=== PATIENT | female | born 1980 | race Hispanic/Latino ===

== ENCOUNTER 2016-07-11 13:31 | Inpatient (IN) | payer MEDICAID ==
[~2016-07-11] VITALS: Ht 157.5 cm; Wt 72.6 kg
[~2016-07-11 13:31] MED LIST: Labetalol 5 mg/mL 20 mL Inj ONE; NOMED; Ondansetron 2 mg/mL 2 mL Inj ONE; Oxytocin 10 Unit/mL Inj ONE; Succinylcholine Chloride 20 mg/mL 5 mL Inj ONE; hydrALAZINE 20 mg/mL Inj ONE
--- NOTE | 2016-07-11 15:44 | DRSVH ---
PROCEDURE: US OB 1 OR MORE FETUS LIMITED INDICATIONS: CONFIRM VERTEX OUTSIDE/PRIOR DATING DATA: Last menstrual period (LMP): 10/29/2015. LMP-based estimated date of delivery (KHOA): 08/05/2016. First dating scan (date and location): 01/15/2016. Estimated date of delivery (KHOA) from first dating scan: 07/24/2016. TECHNIQUE: Real-time scanning was performed of the fetus, with image documentation. Endovaginal scanning: Not required COMPARISON: None. FINDINGS: A single living intrauterine gestation is present. Presentation: Confirm Vertex lie. Placenta: Placental position is anterior, without previa. Amniotic fluid index: 7.2 cm, normal range is 5-24 cm. heart rate: 149 beats per minute. Maternal cervical canal: Not well-seen Estimated gestational age from initial scan: 38 weeks one day. IMPRESSION: 1. Pre-induction lie is confirmed as Vertex. Dictated by: Evan Santiago M.D. on 07/11/2016 at 15:42 Approved by: Evan Santiago M.D. on 07/11/2016 at 15:42
[2016-07-11] MEDS ORDERED: Lactated Ringer's 1,000 ML IV SCH ×2 (16:31→22:28)
[2016-07-11 16:33] LABS: Mean Corpuscular Hemoglobin 31.4 pg (27.0-35.0); Mean Corpuscular Volume 92.6 fL (81-100)
[2016-07-11] MEDS ORDERED: Labetalol 5 mg/mL 4 mL Inj ONE (21:22)
[2016-07-11] MEDS ORDERED: Labetalol 5 mg/mL 4 mL Inj IV PRN (22:20)
[2016-07-11] MEDS ORDERED: Lactated Ringer's 500 ML IV ONE (22:28)
[2016-07-11] MEDS ORDERED: EPHEDrine Sulfate 50 mg/mL Inj IVPUSH PRN (22:30)
[2016-07-11] MEDS ORDERED: fentaNYL 2 mCg/mL-Bupiv 0.125% 100 ML EPIDURAL SCH (22:30)
[2016-07-11] MEDS ORDERED: Ondansetron 2 mg/mL 2 mL Inj IVPUSH PRN ×2 (22:30→22:35)
[2016-07-11] MEDS ORDERED: Atropine 1 mg/10 mL (Code) Syringe IVPUSH PRN (22:30)
--- NOTE | 2016-07-11 22:32 | PCM.HPANE ---
Patient Data Date of Service: Jul 11, 2016 Surgeon Admitting Provider:Rusty Colorado MD Attending Provider:Rusty Colorado MD Primary Care Physician:Sabino Wilder MD Other Provider:Juan Dinh Anesthesia Reason for Visit Induction INDUCTION Ht/WT & BMI Body Mass Index Allergies Coded Allergies: No Known Allergies (Unverified Allergy, Unknown, 07/11/16) Diabetes History Hx Diabetes?: No MRSA MRSA: No Medications Hypertension Medication: Yes Home Meds Incl Beta Fanny: No Reported Medications No Historical Medication Ea 07/07/13 History History of ENT Problems?: No Cardiovascular History: Positive for:: Hypertension Hx of Respiratory Problem?: No Hx Neurologic Problems?: No Gastrointestinal History: Positive for:: Gastroesphageal Reflux Hx of Problems?: No Female Hx: Positive for:: Currently Smoking Status: Never Smoker Stop/Bang Risk Assessment Category Category 1A: Patient has history of documented sleep apnea, and HAS NOT received any narcotic, sedative or anesthesia administration during this stay. Category 1B: Patient has history of documented sleep apnea, and HAS received any narcotic , sedative or anesthesia administration during this stay Category 2: Patient has SUSPECTED Obstructive Sleep Apnea, and HAS received any narcotic , sedative or anesthesia administration during this stay. Category 3: Patient has SUSPECTED Obstructive Sleep Apnea and HAS NOT received narcotic, sedative or anesthesia administration during this stay. Category 4: Outpatient in Procedural Areas with known sleep apnea or who screen positive for High Risk via the STOP/BANG questionnaire. Exam Exam General Appearance: Oriented X3 HEENT/AIRWAY: MP 2 Lungs: Clear to Auscultation Heart: Exam Unremarkable Meds/Labs/Diagnostics Admission Meds Current Medications Lactated Ringer's (Lr) 1,000 ml @ 125 mls/hr Q8H IV Last administered on 21:31; Start 07/11/16 at 16:31 Dinoprostone (Cervidil Vaginal Insert) 10 mg ONCE ONCE VAGINAL Last administered on 07/11/16 17:49; Start 07/11/16 at 16:35; Stop 07/11/16 at 16:37; Status DC Labetalol HCl (Trandate Inj) 20 mg STK-MED ONCE .ROUTE Last administered on 07/11 21:31; Start 07/11/16 at 21:22; Stop 07/11/16 at 21:23; Status DC Labs Test 07/11/16 14:00 07/11/16 15:00 07/11/16 16:10 Hold Purple Top Tube Received (Received) Urine Random Creatinine 74mg/dL (16-392) Urine Random Total Protein 16mg/dL (0-15) Urine Protein/Creatinine Ratio 0.22 Hold Urine Received (Received) White Blood Count 7.9th/mm3 (3.8-10.1) Red Blood Count 4.59mil/mm3 (3.90-5.20) Hemoglobin 14.4g/dL (12.0-15.6) Hematocrit 42.5% (35.0-46.0) Mean Corpuscular Volume 92.6fL (81-100) Mean Corpuscular Hemoglobin 31.4pg (27.0-35.0) Mean Corpuscular Hemoglobin Concent 33.9% (32.0-37.0) Red Cell Distribution Width 14.3% (12.3-15.4) Platelet Count 161bil/L (150-400) Hematology Comments Blood Urea Nitrogen 6mg/dL (6-20) Creatinine 0.43mg/dL (0.57-1.00) Uric Acid 5.0mg/dL (2.6-7.2) Aspartate Amino Transf (AST/SGOT) 30U/L (0-50) Alanine Aminotransferase (ALT/SGPT) 33U/L (0-32) Plan Impression Patient chart reviewed, patient interviewed and anesthestic plan with risks, benefits, and alternatives discussed, and informed consent obtained. ASA Physical Status: ASA3 Severe Disease Anesthetic Plan: Epidural Other with gestational htn vs pre-eclampsia. PLTs >100. Consented via straight edger. Nabil Perez MD Jul 11, 2016 22:31
[2016-07-11] MEDS ORDERED: Oxytocin 30 Units/500 mL LR 30 UNITS in IV Premix 1 EACH IV PRN (22:35)
[2016-07-11] MEDS ORDERED: fentaNYL-PF 50 mCg/mL 2 mL Inj IVPUSH PRN (22:35)
[2016-07-11] MEDS ORDERED: Hemorrhage Kit, Post Partum XX ONE (22:35)
[2016-07-11] MEDS ORDERED: Methylergonovine 0.2 mg/mL Inj IM PRN (22:35)
[2016-07-11] MEDS ORDERED: Oxytocin 10 Unit/mL Inj IM PRN (22:35)
[2016-07-11] MEDS ORDERED: Carboprost 250 mCg/mL Inj IM PRN (22:35)
[2016-07-11] MEDS ORDERED: Sodium Chloride LOK Flush 10 mL Syringe IVFLUSH PRN (22:35)
[2016-07-12] MEDS ORDERED: Sodium Chloride LOK Flush 10 mL Syringe IVFLUSH PRN (07:35)
[2016-07-12] MEDS ORDERED: LANOlin HPA 7 Gm Ointment TOPICAL PRN (07:35)
[2016-07-12] MEDS ORDERED: Methylergonovine 0.2 mg/mL Inj IM PRN (07:35)
[2016-07-12] MEDS ORDERED: Oxytocin 10 Unit/mL Inj IM PRN (07:35)
[2016-07-12] MEDS ORDERED: Carboprost 250 mCg/mL Inj IM PRN (07:35)
[2016-07-12] MEDS ORDERED: Oxytocin 30 Units/500 mL LR 30 UNITS in IV Premix 1 EACH IV PRN (07:35)
[2016-07-12] MEDS ORDERED: Measles-Mumps-Rubella Vaccine 0.5 mL Inj SUBQ ONE (07:35)
[2016-07-12] MEDS ORDERED: diphenhydrAMINE 50 mg Capsule PO PRN (07:35)
[2016-07-12] MEDS ORDERED: Hemorrhage Kit, Post Partum XX ONE (07:35)
[2016-07-12] MEDS ORDERED: Calcium GLUCOnate 10% (Gm) 1 Gm/10 mL Inj IV PRN (08:25)
[2016-07-12] MEDS ORDERED: Magnesium Sulf 4 Gm/100 mL H2O 4 GM in IV Premix 1 EACH IV ONE (08:25)
[2016-07-12] MEDS ORDERED: CeFAZolin Inj 2 GM in IV Premix 1 EACH IV SCH (08:30)
[2016-07-12] MEDS ORDERED: Magnesium Sulfate 4 Gm/100 mL Water Premix IV ONE (08:34)
[2016-07-12] MEDS: Sodium Chloride LOK Flush 10 mL Syringe IVFLUSH SCH ×2 (08:44→09:50)
[2016-07-12] MEDS ORDERED: fentaNYL-PF 50 mCg/mL 2 mL Inj IVPUSH PRN (08:55)
[2016-07-12] MEDS ORDERED: Atropine 0.4 mg/mL Inj IV PRN (08:55)
[2016-07-12] MEDS ORDERED: EPHEDrine Sulfate 50 mg/mL Inj IVPUSH PRN (08:55)
[2016-07-12] MEDS: Acetaminophen IV 1,000 MG in IV Premix 1 EACH IV PRN (09:14)
[2016-07-12] MEDS: Magnesium Sulf 20 Gm/500mL H2O 20 GM in IV Premix 1 EACH IV SCH ×2 (09:35→19:54)
[2016-07-12 10:19] LABS: Mean Corpuscular Hemoglobin 31.6 pg (27.0-35.0); Mean Corpuscular Volume 94.1 fL (81-100)
--- NOTE | 2016-07-12 10:31 | DRSVH ---
PROCEDURE: X-RAY ABDOMEN, ONE VIEW ([id number]) INDICATIONS: STAT C/S NO COUNT TECHNIQUE: One view of the abdomen acquired. COMPARISON: None. FINDINGS: Surgical changes and devices: Presumed epidural catheter. Bowel: Bowel gas pattern is nonspecific, with diffuse gaseous prominence although no transition poin t.. Soft tissues: No suspicious abdominal calcifications. No radiopaque foreign body identified Visualiz ed solid organ contours appear normal in size. Bones: No suspicious bony lesions. IMPRESSION: No radiopaque foreign body identified. Dictated by: Tony Rivera M.D. on 07/12/2016 at 10:29 Approved by: Tony Rivera M.D. on 07/12/2016 at 10:29
--- NOTE | 2016-07-12 12:03 | OP ---
[address] [address] OPERATIVE REPORT PATIENT: ABBY HOFFMANN : 1980 MR#: [id number] ADMIT: 07/11/2016 JOB ID: [id number] DATE OF SURGERY: 07/12/2016 PROCEDURE: Emergent primary low transverse section. PREOPERATIVE DIAGNOSIS(ES): Intrauterine at 38 weeks and 4 days. bradycardia, category three tracing, -induced hypertension, failed induction of labor. POSTOPERATIVE DIAGNOSIS(ES): Intrauterine at 38 weeks and 4 days. bradycardia, category three tracing, -induced hypertension, failed induction of labor. SURGEON: Kenny Schmitz MD TELEGRAPH PLANT MAINTAINER: Leidy Gillis ANESTHESIA: Epidural, dosed to a surgical level. Converted to general. ESTIMATED BLOOD LOSS: 700 mL. ESTIMATED URINE OUTPUT: 200 mL. FLUIDS: 1 L of lactated Ringer. COMPLICATIONS: None. FINDINGS: Normal appearance of the uterus and adnexa. Placenta unremarkable, sent to Pathology. Amniotic fluid clear. Delivered male with weight 2979 g. scores three at one minute and eight at five minutes. PROCEDURE: The patient was brought to the operating room, where she underwent dosing of epidural anesthesia to a surgical level. She was placed in a dorsal supine position with a leftward tilt. The patient was prepped and draped in the usual surgical fashion appropriate for the emergent . There was no time for the time-out. Using a scalpel, a Pfannenstiel skin incision was made and carried down to the underlying layer of rectus muscle fascia with the scalpel. The rectus muscle fascia was incised in the midline with the scalpel and extended laterally with the Lin scissors. Two Gabe clamps were placed on the anterior aspect of the incision and the rectus muscle fascia was from the underlying rectus muscle using Lin scissors. In a similar fashion, two Gabe clamps were placed to the rectus muscle fascia anteriorly and it was from the underlying rectus muscle using Lin scissors. The muscles were in the midline. The peritoneum was identified, tented up with two Marie clamps, entered sharply with Metzenbaum scissors. The peritoneum was laterally extended. Bladder blade was introduced, bladder flap was not created. With a scalpel, the lower segment transverse uterine incision was made, infant had was identified, and male was atraumatically delivered and handed off to the waiting respiratory therapist and newspaper peddler. A segment of umbilical cord was sent for arterial blood gas. The placenta was removed and sent to Pathology. The uterus was exteriorized, cleared from all the clots and debris with a dry laparotomy sponge, and reapproximated with two layers of 0 Monocryl. The pelvis was irrigated with warm normal saline. The uterus was repositioned back into the abdomen. The rectus muscle fascia was closed with 0-Vicryl. The skin was closed with lou. Hemostatic dressing was applied. The patient was repositioned back into the supine position. She tolerated the procedure well and was transferred to the recovery room in stable condition.u
--- NOTE | 2016-07-12 13:12 | HP ---
[address] [address] HISTORY AND PHYSICAL PATIENT: ABBY HOFFMANN : 1980 MR#: [id number] ADMIT: 07/11/2016 JOB ID: [id number] HISTORY OF PRESENT ILLNESS: The patient is a 36-year-old, 3, para 2, at 38 weeks and 3 days being sent from the clinic for induction of labor because of -induced hypertension. Today's blood pressure was elevated in the 140s over 100s. She denies any signs and symptoms of preeclampsia. Otherwise her care was relatively uncomplicated. The patient is advanced maternal age, she would like to have a tubal ligation . PAST MEDICAL HISTORY: As mentioned in past office notes. SOCIAL HISTORY: She denies smoking, alcohol, or illicit or recreational drug use. ALLERGIES: NKDA. FAMILY HISTORY: Noncontributory. PHYSICAL EXAMINATION: Vital signs: Blood pressure 145/100, pulse 80, respiratory rate 16, temperature 36.7. HEENT: PERRLA. Lungs: Clear bilaterally. Good respiratory effort. Cardiovascular: Regular rate and rhythm. Abdomen: Gravid, nondistended, nontender. Vertex presentation confirmed. Extremities: Trace pitting edema bilaterally. BACK FEEDER PLYWOOD LAYUP LINE: The cervix is 1-2 cm dilated, noneffacd, and station minus three. ASSESSMENT AND PLAN: The patient is a 36-year-old, 3, para 2, at 38 weeks and 3 days being admitted for induction of labor because of -induced hypertension. labs were reviewed. She is rubella nonimmune, GBS negative, blood group and type A-positive. IV hydration was started. Labs were sent. In case of elevation blood of blood pressure over 160/100, the management will be provided by labetalol as per protocol. Will continue close monitoring, will start magnesium as necessary. heart rate tracing is reactive, category one at the time of admission. Induction of labor and cervical ripening discussed with the patient. Cervidil is being placed for cervical ripening. Pain management is provided with fentanyl. Epidural will be given as per patient's request. MTDD
[2016-07-12] MEDS: CeFAZolin Inj 2 GM in IV Premix 1 EACH IV SCH ×2 (13:52→22:30)
[2016-07-12] MEDS ORDERED: fentaNYL-PF 50 mCg/mL 2 mL Inj ONE (14:34)
[2016-07-12] MEDS: Lactated Ringer's 1,000 ML IV SCH ×3 (15:33→23:33)
[2016-07-12] MEDS: oxyCODONE-Acetamin 5-325 mg Tablet PO PRN (23:36)
[2016-07-13] MEDS: Acetaminophen IV 1,000 MG in IV Premix 1 EACH IV PRN (01:41)
[2016-07-13] MEDS: hydrOXYzine Pamoate 25 mg Capsule PO PRN (02:20)
[2016-07-13] MEDS: CeFAZolin Inj 2 GM in IV Premix 1 EACH IV SCH (07:30)
[2016-07-13] MEDS: Lactated Ringer's 1,000 ML IV SCH ×2 (07:33→15:33)
[2016-07-13 08:04] LABS: Mean Corpuscular Hemoglobin 31.5 pg (27.0-35.0); Mean Corpuscular Volume 94.1 fL (81-100)
[2016-07-13] MEDS: Sodium Chloride LOK Flush 10 mL Syringe IVFLUSH SCH ×2 (08:30→16:30)
[2016-07-13] MEDS: oxyCODONE-Acetamin 5-325 mg Tablet PO PRN ×3 (09:18→20:22)
--- NOTE | 2016-07-13 19:11 | PCM.ANEP1 ---
Post Anesthesia Phase 1 PACU Phase 1 Assessment Date of Service: Jul 11, 2016 Anesthetic Administered: GA Level of Alertness: Sleepy, easy to arouse Pain: No Pain Scale Score: 4 Nausea or Vomiting: No Oxygen Delivery: Simple Mask Lungs: Clear to Auscultation Nabil Perez MD Jul 13, 2016 19:11
--- NOTE | 2016-07-13 19:11 | PCM.ANEP2 ---
Post Anesthesia Evaluation ASA/CMS Post Anesthesia VS in Patient's Normal Range?: Yes Resp Stable; Airway Patent?: Yes CV Function & Hydration Stable: Yes Mental Status Recovered?: Yes Pain control Satisfactory?: Yes N/V Control Satisfactory?: Yes Nabil Perez MD Jul 13, 2016 19:11
[2016-07-14] MEDS: oxyCODONE-Acetamin 5-325 mg Tablet PO PRN ×5 (00:40→19:32)
[2016-07-14] MEDS: hydrOXYzine Pamoate 25 mg Capsule PO PRN (02:30)
--- NOTE | 2016-07-14 08:42 | PCM.PNOBPP ---
Subjective Date of Service Jul 14, 2016 Post : Primary Ceserean Delivery Subjective 36 yo F G3 now P3 postop day 2 delivered via emergency section due to hypertension and nonreassuring heart tones. Lochia: Normal Pain Management: PO pain meds Gastrointestinal: Passing Flatus Group B Strep Results: Negative Rubella: Non-Immune Blood Type: A RH Type: Positive Labs Laboratory Tests 07/11/16 14:00: Hold Purple Top Tube Received 07/11/16 16:10: Hematology Comments 07/13/16 07:55: White Blood Count 9.7, Red Blood Count 3.87, Hemoglobin 12.2, Hematocrit 36.4, Mean Corpuscular Volume 94.1, Mean Corpuscular Hemoglobin 31.5, Mean Corpuscular Hemoglobin Concent 33.5, Red Cell Distribution Width 14.1, Platelet Count 153 Exam Vital Signs Vital Signs: VS reviewed, concerns are (hypertension 148/104) Exam Abdomen: Abdomen soft Extremities: No tenderness/swelling, No edema, Other (No clonus) General: Alert Surgical Wound : Incision General Appearence: [place], Intact, Well Approximated, No Discharge Dressing & Drainage Status: No Odor OB Post Assessment/Plan Assessment 36 yo female post via section due to induced hypertension. Problems: (1) PIH ( induced hypertension) Qualifiers: Trimester: third trimester Qualified Code: O13.3 - Gestational [- induced] hypertension without significant proteinuria, third trimester Plan: IV labetalol overnight, This morning BP 148/104. BP elevated, change to oral labetalol titrate until pressures are better controlled. Status: Acute ICD Code: O13.9 (2) Delivery by emergency section Plan: Meeting post surgical goals. Continue inpatient care until Status: Acute ICD Code: O82 (3) Status post tubal ligation Plan: Tubal ligation performed during section operation. Status: Resolved ICD Code: Z98.51 (4) Rubella nonimmune status, delivered, current hospitalization Plan: MMR Vaccine given 07/13/16 Status: Resolved ICD Code: O99.89 Pain Management: Percocet and ibuprofen. Pain Evaluation: Adequate Pain Control Post plan: Continue routine post care, Discharge home tomorrow Attending Statement Patient is stable this AM. Has had some blood pressure issues overnight requiring IV labetalol. This AM BP range from 140-150's/90-100's, no severe range blood pressures. CBC returned with Hemoglobin 8.5, will start iron TID with colace for this. This am she denies any headache, vision changes or RUQ pain. On examination she has 2+DTR and no clonus. Will start labetalol 100 BID and titrate up as needed from there. Plan to keep until blood pressure is better controlled will continue to titrate up on labetalol as needed. MICHAEL PETERSON DO Jul 14, 2016 07:19 Heide Vann MD Jul 15, 2016 11:41
[2016-07-15] MEDS: oxyCODONE-Acetamin 5-325 mg Tablet PO PRN ×5 (00:30→23:25)
--- NOTE | 2016-07-15 06:51 | PCM.PNOBPP ---
Subjective Date of Service Jul 15, 2016 Post : Primary Ceserean Delivery Subjective 36 yo G3 now P3 POD 3 emergency for induced hypertension and non-reassuring heart tones. Patient is doing well this morning. She has been up walking around and going to and from the nursery to see her baby. She is pumping breast milk for baby. Her BP overnight was in normal range after a good response with labetalol. Lochia: Normal Pain Management: PO pain meds Gastrointestinal: Passing Flatus Group B Strep Results: Negative Rubella: Non-Immune Blood Type: A RH Type: Positive Labs Laboratory Tests 07/11/16 14:00: Hold Purple Top Tube Received 07/11/16 16:10: Hematology Comments 07/13/16 07:55: White Blood Count 9.7, Red Blood Count 3.87, Hemoglobin 12.2, Hematocrit 36.4, Mean Corpuscular Volume 94.1, Mean Corpuscular Hemoglobin 31.5, Mean Corpuscular Hemoglobin Concent 33.5, Red Cell Distribution Width 14.1, Platelet Count 153 Exam Vital Signs Vital Signs: VS reviewed, stable Exam Abdomen: Fundus firm, Abdomen soft, Abdomen non-tender General: Alert, Oriented X3 Surgical Wound : Incision General Appearence: Steri Strips, Intact, No Inflammatory Changes Dressing & Drainage Status: Dry & Intact, Serous Drainage (mild and dry), No Odor OB Post Assessment/Plan Problems: (1) PIH ( induced hypertension) Qualifiers: Trimester: third trimester Qualified Code: O13.3 - Gestational [- induced] hypertension without significant proteinuria, third trimester Plan: oral labetalol titrated to 200 mg BID pressures are better controlled and within the normal range. BP 138/88 this morning and will be due for her morning dose of labetalol in 1.5 hours. Status: Acute ICD Code: O13.9 (2) Delivery by emergency section Plan: Meeting post surgical goals. Continue inpatient care until ready for discharge. Discharge with iron, vitamin C, docusate, Percocet and labetalol. Status: Acute ICD Code: O82 (3) Status post tubal ligation Plan: Tubal ligation performed during section operation. Continue post operative care. Status: Resolved ICD Code: Z98.51 (4) Rubella nonimmune status, delivered, current hospitalization Plan: MMR Vaccine given 07/13/16 Status: Resolved ICD Code: O99.89 Pain Evaluation: Adequate Pain Control Post plan: Continue routine post care, Anticipate discharge home today Attending Statement The patient was seen and examined together with Dr. Peterson on 07/15/2016 and I have added additional information to the note above. MICHAEL PETERSON DO Jul 15, 2016 06:51 Cookie Griffiths MD Jul 16, 2016 08:17
[2016-07-15 09:20] LABS: BASOPHILS % (AUTO) 0.5 % (0-3); EOSINOPHILS % (AUTO) 3.5 % (0-5); MONOCYTES % (AUTO) 7.6 % (4-12); Mean Corpuscular Hemoglobin 31.7 pg (27.0-35.0); Mean Corpuscular Volume 95.7 fL (81-100); NEUTROPHILS % (AUTO) 60.2 % (40-74); Platelet Count 201 bil/L (150-400)
[2016-07-15] MEDS ORDERED: Magnesium Sulf 4 Gm/100 mL H2O 4 GM in IV Premix 1 EACH IV ONE (11:50)
[2016-07-15] MEDS ORDERED: Calcium GLUCOnate 10% (Gm) 1 Gm/10 mL Inj IV PRN (11:50)
[2016-07-15] MEDS: Lactated Ringer's 1,000 ML IV SCH (12:39)
[2016-07-15] MEDS: Magnesium Sulf 20 Gm/500mL H2O 20 GM in IV Premix 1 EACH IV SCH ×2 (13:20→23:25)
[2016-07-16] MEDS: oxyCODONE-Acetamin 5-325 mg Tablet PO PRN ×2 (04:04→19:23)
[2016-07-16 07:13] LABS: BASOPHILS % (AUTO) 0.4 % (0-3); EOSINOPHILS % (AUTO) 4.4 % (0-5); MONOCYTES % (AUTO) 6.6 % (4-12); Mean Corpuscular Volume 95.2 fL (81-100); NEUTROPHILS % (AUTO) 59.8 % (40-74); Platelet Count 230 bil/L (150-400)
--- NOTE | 2016-07-16 09:18 | PCM.PNOBPP ---
Subjective Date of Service Jul 16, 2016 Post : Primary Ceserean Delivery Subjective 36 yo G3 now P3 POD 4 emergency cesarian section for induced hypertension and non-reassuring heart tones. Patient is doing well this morning. She has been primarily in bed since she is receiving Magnesium sulfate and has a Waite catheter in place. She is pumping breast milk and bottle feeding baby. Her BP overnight was in normal range however she has had some readings in the 170's systolic just before her labetalol dosing, she has otherwise had a good response to labetalol. Mild dizzines, no headache, no shortness of breath. Lochia: Normal Pain Management: PO pain meds, Good Pain Control Gastrointestinal: Passing Flatus Postop Activity: Other (in bed with waite at present) Group B Strep Results: Negative Rubella: Non-Immune Blood Type: A RH Type: Positive Labs Laboratory Tests 07/11/16 14:00: Hold Purple Top Tube Received 07/11/16 16:10: Hematology Comments 07/16/16 06:25: Exam Vital Signs Vital Signs BP 115/65 Pulse 74 this morning all vital signs within normal range. Vital Signs: VS reviewed, stable Exam Abdomen: Fundus firm, Abdomen soft Extremities: No tenderness/swelling, No edema Lungs: Clear to Auscultation Heart: Regular Rate/Rhythm, No Murmurs/Rubs/Gallops General: Alert, Oriented X3, Cooperative, No Acute Distress Surgical Wound : Incision General Appearence: Steri Strips, Intact, Well Approximated, No Inflammatory Changes Dressing & Drainage Status: Dry & Intact, No Odor OB Post Assessment/Plan Assessment 36 yo status post emergency cesarian section and tubal ligation with preeclampsia. Currently on Magnesium Sulfate until this afternoon for a 24 hour course. Hypertension controlled with labetalol now TID. Problems: (1) PIH ( induced hypertension) Qualifiers: Trimester: third trimester Qualified Code: O13.3 - Gestational [- induced] hypertension without significant proteinuria, third trimester Plan: oral labetalol titrated to 200 mg TID pressures are better controlled and within the normal range. BP 115/65 early this morning. Status: Acute ICD Code: O13.9 (2) Pre-eclampsia Qualifiers: Trimester: third trimester Qualified Code: O14.93 - Unspecified pre- eclampsia, third trimester Plan: Patient with elevated liver enzymes and multiple readings of systolic BP in the 170s Patient started on Magnesium sulfate yesterday afternoon to be administered for 24 hours. Continue to monitor blood pressures after magnesium infusion is complete. Continue labetalol for elevated blood pressure. Status: Acute ICD Code: O14.90 (3) Delivery by emergency section Plan: Meeting post surgical goals. Continue inpatient care until ready for discharge. Discharge with iron, vitamin C, docusate, Percocet and labetalol. Status: Acute ICD Code: O82 (4) Rubella nonimmune status, delivered, current hospitalization Plan: MMR Vaccine given 07/13/16 Status: Resolved ICD Code: O99.89 Pain Evaluation: Adequate Pain Control Post plan: Continue routine post care, Discharge home tomorrow Plan: continue to monitor blood pressures after magnesium is completed. If patient is doing well she could potentially go home today with close outpatient follow-up. Attending Statement I saw patient. She understood s/s of preeclampsia and understood it could happen during area. MICHAEL PETERSON DO Jul 16, 2016 07:06 Fior Mckeon MD Aug 10, 2016 12:42
[2016-07-16] MEDS: Magnesium Sulf 20 Gm/500mL H2O 20 GM in IV Premix 1 EACH IV SCH (09:53)
[2016-07-16] MEDS: Lactated Ringer's 1,000 ML IV SCH (09:57)
--- NOTE | 2016-07-16 16:23 | PATH ---
SURGICAL PATHOLOGY Attending Physician:Kenny Schmitz MD CASE STATUS: Signed Out PATIENT NAME: ABBY HOFFMANN PID: [id number] : 1980 DATE COLLECTED:07/12/2016 00:00 SPECIMEN: Placenta CLINICAL HISTORY: A: PLACENTA IUP 38.3 WEEKS -INDUCED HYPERTENSION, NRFHR FINAL DIAGNOSIS: 1.PLACENTA: GHOTRA PLACENTA (576 GRAMS) WITH MULTIPLE SMALL INFARCTS. NO CHORIOAMNIONITIS IDENTIFIED. ICD10 CODE O43.81 GROSS DESCRIPTION: The specimen is received in formalin, labeled with the patient's name and consists of an intact placenta and includes placental disc (576 g, 27.8 x 22.3 x 0.2 cm-3.2 cm), umbilical cord (length-32.1 cm, diameter-1.5 x 1.1 cm) and membranes. The membranes are ruptured 4.5 cm from the free edge of the placenta and are semi-translucent. The umbilical cord is attached 6.5 cm from the edge of the placenta and contains 3 vessels. The surface is smooth and shiny with no evidence of meconium. The maternal surface is partially dark maroon with normal cotyledon formation. The placental disc is partially spongy. Approximately 50% of the placenta is cano-yellow and fibrous. No hematomas, non-fibrous nodules, masses, or lesions. Section code: (A) edge of placenta with membranes, umbilical cord; (B-D, E-F,) placenta, 8 full thickness sections. 07/15/16 JM MICRO DESCRIPTION: See diagnosis. ICD-9 CODES: CPT CODES: 1: 74607 Electronically Signed Out Taryn Bess MD [facility] [address], [place] [address] Technical component performed at [facility], [facility] [address], [place], [address]
[2016-07-17 07:11] LABS: BASOPHILS % (AUTO) 0.3 % (0-3); EOSINOPHILS % (AUTO) 3.7 % (0-5); MONOCYTES % (AUTO) 7.2 % (4-12); Mean Corpuscular Hemoglobin 31.6 pg (27.0-35.0); Mean Corpuscular Volume 95.9 fL (81-100); NEUTROPHILS % (AUTO) 64.9 % (40-74); Platelet Count 254 bil/L (150-400)
[2016-07-17] MEDS: oxyCODONE-Acetamin 5-325 mg Tablet PO PRN ×2 (07:35→15:56)
--- NOTE | 2016-07-17 08:05 | PCM.PNOBPP ---
Subjective Date of Service Jul 17, 2016 Post : Primary Cesere[place] Delivery Subjective 36 yo G3 now P3 POD 4 emergency cesarian section for induced hypertension and non-reassuring heart tones. Patient is doing well this morning. She has been up to urinate and has had a recent bowel movement. She is pumping breast milk and bottle feeding baby. Her BP overnight was elevated in the high 150s systolic. She continues to have mild dizzines, no headache, no shortness of breath, normal lochia, pain is controlled. Lochia: Normal Lochia: Normal Pain Management: PO pain meds, Good Pain Control Gastrointestinal: Passing Flatus, Passing Stool Postop Activity: Other (in bed with waite at present) Group B Strep Results: Negative Rubella: Non-Immune Blood Type: A RH Type: Positive Labs Laboratory Tests 07/11/16 14:00: Hold Purple Top Tube Received 07/11/16 16:10: Hematology Comments 07/17/16 06:30: White Blood Count 8.8, Red Blood Count 3.70, Hemoglobin 11.7, Hematocrit 35.5, Mean Corpuscular Volume 95.9, Mean Corpuscular Hemoglobin 31.6, Mean Corpuscular Hemoglobin Concent 33.0, Red Cell Distribution Width 14.3, Platelet Count 254, Neutrophils (%) (Auto) 64.9, Lymphocytes (%) (Auto) 23.2, Monocytes ( %) (Auto) 7.2, Eosinophils (%) (Auto) 3.7, Basophils (%) (Auto) 0.3 Exam Vital Signs Vital Signs: VS reviewed, concerns are (hypertension 157/94 this morning) Exam Abdomen: Fundus firm, Abdomen soft : Voiding without difficulty Extremities: No tenderness/swelling, No edema Lungs: Clear to Auscultation Heart: Regular Rate/Rhythm, No Murmurs/Rubs/Gallops General: Alert, Oriented X3 Surgical Wound : Incision General Appearence: Steri Strips, Intact, Incision Healing, No Discharge Dressing & Drainage Status: Dry & Intact OB Post Assessment/Plan Problems: (1) Pre-eclampsia Qualifiers: Trimester: third trimester Qualified Code: O14.93 - Unspecified pre- eclampsia, third trimester Plan: Patient with elevated liver enzymes now trending down. BP elevated overnight 157-159/ 88-94 Patient completed 24 hour course of Magnesium sulfate yesterday afternoon. Continue to monitor blood pressures after magnesium infusion is complete. Continue labetalol 200 mg TID for elevated blood pressure. Status: Acute ICD Code: O14.90 (2) PIH ( induced hypertension) Qualifiers: Trimester: third trimester Qualified Code: O13.3 - Gestational [- induced] hypertension without significant proteinuria, third trimester Plan: oral labetalol titrated to 200 mg TID. Status: Acute ICD Code: O13.9 (3) Delivery by emergency section Plan: Meeting post surgical goals. Continue inpatient care until ready for discharge. Discharge with iron, vitamin C, docusate, Percocet and labetalol. Status: Acute ICD Code: O82 (4) Rubella nonimmune status, delivered, current hospitalization Plan: MMR Vaccine given 07/13/16 Status: Resolved ICD Code: O99.89 Pain Evaluation: Adequate Pain Control Post plan: Continue routine post care, Discharge home tomorrow Plan: continue to monitor blood pressures. If patient is doing well she could potentially go home today with close outpatient follow-up. MICHAEL PETERSON DO Jul 17, 2016 07:58 continue to monitor blood pressures. If patient is doing well she could potentially go home today with close outpatient follow-up. MICHAEL PETERSON DO Jul 17, 2016 07:58
[2016-07-17] MEDS ORDERED: DOCU-41 PO (10:06)
[2016-07-17] MEDS ORDERED: FERR-83 PO (10:06)
[2016-07-17] MEDS ORDERED: ASCO-294 PO (10:06)
[2016-07-17] MEDS ORDERED: LABE300T PO (10:06)
[2016-07-17] MEDS ORDERED: OXYC1TAB24 PO (10:06)
[2016-07-17] MEDS ORDERED: IBUP800T28 PO (10:06)
--- NOTE | 2016-07-17 10:59 | PCM.DIOB ---
Obstetrical Disch Instruction Date of Service: Jul 17, 2016 Dates of Hospitalization Date of Hospital Admission Jul 11, 2016 at 13:31 Providers Admitting Physician: Rusty Colorado MD Primary Care Physician: Sabino Wilder MD Attending Physician: Rusty Colorado MD Discharge Diagnosis Discharge Diagnosis 1. Preeclampsia 2. Delivery by emergency section Post Operative diagnosis 1. Intrauterine at 38 weeks and 4 days. 2. bradycardia 3. category three tracing 4. -induced hypertension, 5. failed induction of labor. Problems: (1) Pre-eclampsia Qualifiers: Trimester: third trimester Qualified Code: O14.93 - Unspecified pre- eclampsia, third trimester Plan: Labetalol 300 mg 3 times a day, follow-up in one week. Status: Acute ICD Code: O14.90 (2) PIH ( induced hypertension) Qualifiers: Trimester: third trimester Qualified Code: O13.3 - Gestational [- induced] hypertension without significant proteinuria, third trimester Plan: oral labetalol titrated to 300 mg TID. Status: Acute ICD Code: O13.9 (3) Delivery by emergency section Plan: Follow-up in clinic in 1 week and again in 6 weeks. Call the clinic with bleeding, or fever >100.4. Do not place anything in vagina (including tampons or having intercourse) for 6 weeks. If you feel depressed or down seek help, especially if you feel like you may hurt yourself or baby. You just had a major procedure, take care of yourself. Status: Acute ICD Code: O82 (4) Rubella nonimmune status, delivered, current hospitalization Plan: MMR Vaccine given 07/13/16 Status: Resolved ICD Code: O99.89 Diet Discharge Diet: Heart Healthy Activity Discharge Activity-General: Pelvic Rest for 6 weeks, Try not to overdue, Activity as energy allows, No lifting >15 pounds for 2 weeks Dressing and Incisional Care Hygiene: May shower, DO NOT soak incision under water, NO bathtub, hot tub or whirlpool (this is Dione like him with) Additional Instructions Discharge Instructions Please take the iron and vitamin c together to prevent anemia You have been given a prescription for ibuprofen you may use this for pain control and Percocet if needed. Do not take more pain medication (Percocet) than is necessary -- less is better. Percocet pills have Tylenol (acetaminophen) in them at 325mg per pill. Do not take Tylenol in addition to your pain medication but should take one or the other. Both iron and Percocet can give you constipation so you have also been given a prescription for docusate to keep you regular. Take labetalol every 8 hours. If you have any symptoms including headache, vision changes, stomach pain, nausea, vomiting, shortness of breath, or feel confused please call the clinic as these are signs of worsening high blood pressure and preeclampsia. Be sure to follow up in 1 weeks and then again in 6 weeks at [facility]. If you have a fever greater than 100.4, please call [facility]. There is always someone nuclear control operator to talk to. If you have an increase in bleeding, call [facility]. If you have a lot of bleeding suddenly, especially if you have symptoms of dizziness & weakness with it, get emergency help. When you follow-up with [facility] you may discuss tubal ligation 6 weeks . If you start experiencing extreme depression, especially if you feel that you are a danger to yourself or your family, seek emergency help. You have been through a lot -- BE SURE TO TAKE CARE OF YOURSELF. Follow Up Plan Follow Up Plan 1 week to monitor for high blood pressure and preeclampsia. Follow-up Provider (F9): Kenny Schmitz MD Follow-up appointment: Weeks (1) Call your provider for: Fever or Chills, Heavy bleeding, Epigastric pain, Red painful breasts DIONE PETERSON DO Jul 17, 2016 10:59
--- NOTE | 2016-07-17 11:17 | PCM.DC.OB ---
Obstetrical Discharge Summary Date of Service Jul 17, 2016 Date of hospital admission Jul 11, 2016 at 13:31 Date of Discharge: Jul 17, 2016 Providers Admitting Physician: Rusty Colorado MD Primary Care Physician: Sabino Wilder MD Attending Physician: Rusty Colorado MD Problems: (1) PIH ( induced hypertension) Qualifiers: Trimester: third trimester Qualified Code: O13.3 - Gestational [- induced] hypertension without significant proteinuria, third trimester Plan: Labetolol 200mg BID, follow up with primary care. Status: Acute ICD Code: O13.9 (2) Delivery by emergency section Plan: Follow-up in clinic in 2 weeks and again in 6 weeks. Call the clinic with bleeding, or fever >100.4. Do not place anything in vagina (including tampons or having intercourse) for 6 weeks. If you feel depressed or down seek help, especially if you feel like you may hurt yourself or baby. You just had a major procedure, take care of yourself. Status: Acute ICD Code: O82 (3) Rubella nonimmune status, delivered, current hospitalization Status: Resolved ICD Code: O99.89 Invasive procedures Emergency section Date of Procedure: Jul 12, 2016 Pathology 1.PLACENTA: GHOTRA PLACENTA (576 GRAMS) WITH MULTIPLE SMALL INFARCTS. NO CHORIOAMNIONITIS IDENTIFIED. Taryn Bess MD Brief History and Physical: HPI on admission: The patient is a 36-year-old, 3, para 2, at 38 weeks and 3 days being sent from the clinic for induction of labor because of -induced hypertension. Today's blood pressure was elevated in the 140s over 100s. She denies any signs and symptoms of preeclampsia. Otherwise her care was relatively uncomplicated. The patient is advanced maternal age, she would like to have a tubal ligation . PAST MEDICAL HISTORY: As mentioned in past office notes. SOCIAL HISTORY: She denies smoking, alcohol, or illicit or recreational drug use. ALLERGIES: NKDA. FAMILY HISTORY: Noncontributory. Kenny Schmitz MD 07/12/16 1156 Exam on day of discharge: Patient in no acute distress, well-nourished, heart with regular rate and rhythm, no murmurs. Lungs clear to auscultation bilaterally with good respiratory effort. No edema in bilateral lower extremities. No clonus. Alert and oriented with normal mood and affect. Hospital Course: 36-year-old G3 now P3 who was sent from the clinic for hypertension at 38 weeks. Induction of labor was started. A category 3 heart tracing was noted. Subsequent emergency was performed mother was brought to her room in stable condition, infant was brought to special care nursery. Normal /postsurgical care was given. Patient continued to have high blood pressures with some readings in the 170s systolic. Labetalol was started and titrated up to a discharge dose of 300mg every 8 hours. She has remained asymptomatic with her hypertension and generally doing very well. She is discharged in stable condition with [facility]. Ascorbate Calcium (Vitamin C) 500 Mg Tablet 500 MG PO DAILY Take with Iron Prescribed by: MICHAEL PETERSON DO Docusate Sodium (Colace) 100 Mg Capsule 100 MG PO BID PRN PRN For Constipation Prescribed by: MICHAEL PETERSON DO Ferrous Sulfate (Ferrous Sulfate) 325 Mg Tablet 325 MG PO DAILY Take with Vitamin C Prescribed by: MICHAEL PETERSON DO Ibuprofen (Ibuprofen) 800 Mg Tablet 800 MG PO Q6H PRN PRN For Pain Prescribed by: MICHAEL PETERSON DO Labetalol (Labetalol) 300 Mg Tablet 300 MG PO TID Prescribed by: MICHAEL PETERSON DO No Historical Medication (No Historical Medication) Ea (Reported) oxyCODONE-Acetaminophen 5-325 mg (oxyCODONE-Acetaminophen 5-325 mg) 1 Each Tablet 1-2 TAB PO Q4H PRN PRN For Pain Prescribed by: MICHAEL PETERSON DO Discharge Medications: 1. Percocet 2. Ibuprofen 3. Labetalol 4. Colace 5. Iron 6. Vitamin C Disposition Home Follow-up plan 1 week with [facility], tubal ligation 6 weeks . Discharge Diet: Heart Healthy Discharge Activity-General: Pelvic Rest for 6 weeks, No lifting >15 pounds for 2 weeks Patient instructions Please take the iron and vitamin c together to prevent anemia You have been given a prescription for ibuprofen you may use this for pain control and Percocet if needed. Do not take more pain medication (Percocet) than is necessary -- less is better. Percocet pills have Tylenol (acetaminophen) in them at 325mg per pill. Do not take Tylenol in addition to your pain medication but should take one or the other. Both iron and Percocet can give you constipation so you have also been given a prescription for docusate to keep you regular. Take labetalol every 8 hours. If you have any symptoms including headache, vision changes, stomach pain, nausea, vomiting, shortness of breath, or feel confused please call the clinic as these are signs of worsening high blood pressure and preeclampsia. Be sure to follow up in 1 weeks and then again in 6 weeks at [facility]. If you have a fever greater than 100.4, please call [facility]. There is always someone airborne missions systems to talk to. If you have an increase in bleeding, call [facility]. If you have a lot of bleeding suddenly, especially if you have symptoms of dizziness & weakness with it, get emergency help. When you follow-up with [facility] you may discuss tubal ligation 6 weeks . If you start experiencing extreme depression, especially if you feel that you are a danger to yourself or your family, seek emergency help. You have been through a lot -- BE SURE TO TAKE CARE OF YOURSELF. MICHAEL PETERSON DO Jul 15, 2016 07:05
[2016-07-17 17:05] VITALS: BP 127/89; PULSE 70; RESP 22
== END 2016-07-17 16:20 | disposition home or self-care (01) | DRG 540 ==
LOC: FBC 13:31
PROVIDERS: ADMIT Obstetrics & Gynecology; ATTEND Legal Medicine
PROC: 10D00Z1 Extraction of Products of Conception, Low, Open Approach (ICD-10-PCS; principal; 2016-07-12 06:38)
DX: O13.4 Gestational [pregnancy-induced] hypertension without significant proteinuria, complicating childbirth (principal); O77.8 Labor and delivery complicated by other evidence of fetal stress; O14.94 Unspecified pre-eclampsia, complicating childbirth; O09.523 Supervision of elderly multigravida, third trimester; Z3A.38 38 weeks gestation of pregnancy; Z37.0 Single live birth; O61.0 Failed medical induction of labor

== ENCOUNTER 2016-08-10 17:39 | Emergency (ER) | payer MEDICAID ==
[~2016-08-10] VITALS: Ht 157.5 cm; Wt 66.5 kg
[~2016-08-10 17:39] MED LIST changes: +ASCO-294 PO; +DOCU-41 PO; +FERR-83 PO; +IBUP800T28 PO; +LABE300T PO; -Labetalol 5 mg/mL 20 mL Inj ONE; +OXYC1TAB24 PO; -Ondansetron 2 mg/mL 2 mL Inj ONE; -Oxytocin 10 Unit/mL Inj ONE; -Succinylcholine Chloride 20 mg/mL 5 mL Inj ONE; -hydrALAZINE 20 mg/mL Inj ONE
[2016-08-10 17:49] VITALS: BP 168/108; PULSE 87; RESP 16; O2SAT 97
--- NOTE | 2016-08-10 17:58 | ED.REPORT ---
HPI-Abd Pain F Under 40 Date of Service Aug 10, 2016 ED Provider: Yevgeniy Gonzalez MD A 36 year old female s/p induction and for -induced hypertension four weeks ago presents to the ED with epigastric pain onset two weeks ago. The pain radiates to her back. Associated symptoms include nausea, headache, and constipation. She denies vaginal bleeding, vomiting, diarrhea, vision change, fever, cough, chest pain, dysuria, or urinary frequency. The patient is currently taking Labetalol 300 t.i.d. Nursing Notes Stated Complaint: LOW ABD PAIN Chief Complaint: Female Abdominal Pain Nursing Notes Reviewed: Yes Allergies: Coded Allergies: No Known Allergies (Unverified Allergy, Unknown, 08/10/16) Scheduled Ascorbate Calcium (Vitamin C) 500 Mg Tablet 500 MG PO DAILY Take with Iron Ferrous Sulfate (Ferrous Sulfate) 325 Mg Tablet 325 MG PO DAILY Take with Vitamin C Labetalol (Labetalol) 300 Mg Tablet 300 MG PO TID Scheduled PRN Docusate Sodium (Colace) 100 Mg Capsule 100 MG PO BID PRN PRN For Constipation Ibuprofen (Ibuprofen) 800 Mg Tablet 800 MG PO Q6H PRN PRN For Pain oxyCODONE-Acetaminophen 5-325 mg (oxyCODONE-Acetaminophen 5-325 mg) 1 Each Tablet 1-2 TAB PO Q4H PRN PRN For Pain Miscellaneous Medications No Historical Medication (No Historical Medication) Ea General Time Seen by MD: 17:57 Chief Complaint Abdominal pain (Epigastric) Hx Obtained From: Patient Arrived By: Walk-in Sudden in Onset?: No Onset Occurred: More than a week ago... (2 weeks) Context of Onset: Recent surgery Symptom Duration: Since onset Location: : Epigastric Quality: Painful Radiation: : Back Severity: Current: Moderate Severity: Maximum: Moderate Associated with: Reports: Nausea, Vaginal bleeding (Odorous), Denies: Fever, Urinary frequency, Urinary tract symptoms Pertinent Negative: Relieved by nothing Context Related History: Reports: Abdominal surgery Recent Healthcare: Recent doctor visit, Recent hospitalization Past Medical History Past Medical History -induced hypertension Past Surgical History Reports: Smoking History Never Smoker Social History Alcohol Use: Denies alcohol use Drug Use: Denies drug use Other Social History: Good social support, , Lives with children Ambulatory Status Independent Review of Systems Constitutional: Denies: Fever Respiratory: Denies: Non-productive cough, Shortness of breath Cardiovascular: Denies: Chest pain GI: Reports: Abdominal pain (Epigastric), Constipation, Nausea, Denies: Diarrhea, Vomiting Female: Denies: Dysuria, Urinary frequency, Vaginal bleeding - abnl Musculoskeletal: Reports: Back pain Complete sys rev & neg: except as marked. Neurologic: Reports: Headache, Denies: Vision change Physical Exam Initial Vital Signs Vital Signs (First) Date Time Temp Pulse Resp B/P Pulse Ox O2 Delivery O2 Flow Rate FiO2 08/10/16 17:49 36.6 87 16 168/108 97 Room Air Initial VS: Reviewed Head / Eyes: Atraumatic, Normocephalic ENT: Conjunctiva normal, No scleral icterus Neck: Supple, Full range of motion Extremities: Vascular intact, Neuro intact, No swelling Skin: Warm, Dry, No cyanosis Neurologic: Alert, Oriented, Nonfocal Psychiatric: Mood/affect normal, Behavior normal, Normal thought content General/Constitutional: Awake, Alert Respiratory / Chest: Breath sounds NL, Breath sounds = bilat, No respiratory distress Cardiovascular: Heart rate NL, Regular rhythm, Heart sounds NL Abdomen: Soft, No guarding, No palpable mass Tenderness/Guarding/Rebound: Positive: Tender LUQ... (Mild), Tender RUQ... ( Mild) Interpretation & Diagnostics Lab Results Interpretation Result Diagram: 08/10/16182408/10/161824 Test 08/10/16 18:25 White Blood Count 9.1th/mm3 (3.8-10.1) Red Blood Count 4.29mil/mm3 (3.90-5.20) Hemoglobin 13.4g/dL (12.0-15.6) Hematocrit 40.0% (35.0-46.0) Mean Corpuscular Volume 93.2fL (81-100) Mean Corpuscular Hemoglobin 31.2pg (27.0-35.0) Mean Corpuscular Hemoglobin Concent 33.5% (32.0-37.0) Red Cell Distribution Width 12.7% (12.3-15.4) Platelet Count 228bil/L (150-400) Neutrophils (%) (Auto) 54.5% (40-74) Lymphocytes (%) (Auto) 18.5% (14-46) Monocytes (%) (Auto) 8.0% (4-12) Eosinophils (%) (Auto) 17.9% (0-5) Basophils (%) (Auto) 0.4% (0-3) Urine Color Yellow (YELLOW) Urine Appearance Clear (CLEAR,HAZY) Urine pH 5.5 (5.0-8.0) Urine Specific [place] <1.005 (1.003-1.035) Urine Protein Negativemg/dL (NEG,TRACE) Urine Glucose (UA) Negativemg/dL (NEGATIVE) Urine Ketones Negativemg/dL (NEGATIVE) Urine Occult Blood Negative (NEGATIVE) Urine Nitrite Negative (NEGATIVE) Urine Bilirubin Negative (NEGATIVE) Urine Urobilinogen Normalmg/dL (NORMAL) Urine Leukocyte Esterase Negative (NEGATIVE) Urine RBC 0-2/hpf (0-2) Urine WBC 0-5/hpf (0-5) Urine Epithelial Cells Occasional/hpf (NONE-MOD) Urine Crystals None seen (NONE SEEN) Urine Bacteria Few/hpf (NONE-FEW) Urine Hyaline Casts None/lpf (NONE) Urine Granular Casts None seen (NONE SEEN) Urine Waxy Casts None seen (NONE SEEN) Urine Red Blood Cell Casts None seen (NONE SEEN) Urine White Blood Cell Casts None seen (NONE SEEN) Urine Mucus None seen (None Seen) Urine Trichomonas None seen (NONE SEEN) Urine Yeast None (NONE SEEN) Urinalysis Comment None Urine Culture Reflexed Not indicated Sodium Level 142mEq/L (134-144) Potassium Level 3.9mEq/L (3.5-5.2) Chloride Level 105mEq/L (97-108) Carbon Dioxide Level 22mmol/L (18-29) Blood Urea Nitrogen 11mg/dL (6-20) Creatinine 0.46mg/dL (0.57-1.00) Estimat Glomerular Filtration Rate 218mL/min (>59) Glucose Level 107mg/dL (60-99) Calcium Level 8.5mg/dL (8.5-10.1) Total Bilirubin 0.2mg/dL (0.0-1.2) Aspartate Amino Transf (AST/SGOT) 66U/L (0-50) Alanine Aminotransferase (ALT/SGPT) 141U/L (0-32) Alkaline Phosphatase 146U/L (25-150) Total Protein 7.0g/dL (6.4-8.4) Albumin 4.0g/dL (3.4-5.0) Lipase 37U/L (13-60) Hold Vargas Top Tube Received (Received) ECG Interpretation ECG Interpretation: Sinus rhythm rate 73 Probable left ventricular hypertrophy Time: 17:57 Interpreted by: ED physician Discharge & Departure Primary Impression: Abdominal pain Abdominal location: epigastric Qualified Code: R10.13 - Epigastric pain Additional Impressions: Hypertension Hypertension type: unspecified secondary hypertension Hypertension goal: unspecified goal Qualified Code: I15.9 - Secondary hypertension, unspecified Headache Headache type: unspecified Headache chronicity pattern: unspecified pattern Intractability: not intractable Qualified Code: R51 - Headache Disposition: Home Discharge Condition All VS Reviewed: Yes Condition: Stable Patient Instructions: Acute Abdominal Pain (ED) Additional Instructions: No dangerous cause for the abdominal pain is discovered tonight. You have mild elevation of the liver enzymes which may or may not be of clinical significance. At this point I doubt that your symptoms are related to her recent delivery. I recommend follow-up with your primary doctor, Dr. Wilder, in the coming days for continued investigation as needed. Please continue to take your blood pressure medication as prescribed. Use Tylenol or ibuprofen as needed for headache or pain. Google Translate Ninguna causa peligrosa para el dolor abdominal se descubre esta noche. Usted tiene elevacin leve de las enzimas hepticas que pueden o no ser de importancia clnica. En luci punto dudo que ness sntomas estn relacionados con berry parto reciente. Recomiendo el seguimiento con berry mdico de anthony, el Dr. Wilder, en los prximos godfrey para continuar la investigacin segn sea necesario. Por favor contine tomando berry medicacin de la presin arterial seg n lo prescrito. Use Tylenol o ibuprofeno segn sea necesario para el dolor de mayra o dolor. Referrals: Sabino Wilder MD (PCP) Kenny Schmitz MD Scribe Attestation Portions of this note were transcribed by Nata Montanez. I, Dr. Gonzalez, personally performed the history, physical exam, and medical decision-making; I reviewed and confirmed the accuracy of the information in the transcribed note. copies to: Sabino Wilder MD; Kenny Schmitz MD, Kirk H MD Aug 10, 2016 17:58 NATA MONTANEZ Aug 10, 2016 18:14
[2016-08-10] MEDS ORDERED: 0.9% Sodium Chloride 1,000 ML IV ONE (18:09)
[2016-08-10] MEDS ORDERED: Dexamethasone 10 mg/mL Inj IVPUSH ONE (18:10)
[2016-08-10] MEDS ORDERED: MetoCLOpramide 5 mg/mL 2 mL Inj IVPUSH ONE (18:10)
[2016-08-10 18:54] LABS: BASOPHILS % (AUTO) 0.4 % (0-3); EOSINOPHILS % (AUTO) 17.9 % (0-5); Mean Corpuscular Hemoglobin 31.2 pg (27.0-35.0); Mean Corpuscular Volume 93.2 fL (81-100); NEUTROPHILS % (AUTO) 54.5 % (40-74); Platelet Count 228 bil/L (150-400)
[2016-08-10 19:04] LABS: APPEARANCE,URINE CLEAR (CLEAR,HAZY); COLOR,URINE YELLOW (YELLOW); OCCULT BLOOD,URINE NEGATIVE (NEGATIVE); PH,URINE 5.5 (5.0-8.0); UROBILINOGEN,URINE NORMAL (NORMAL)
[2016-08-10] MEDS ORDERED: Ondansetron 2 mg/mL 2 mL Inj IVPUSH PRN (19:30)
[2016-08-10] MEDS ORDERED: HYDROmorphone 0.5 mg/0.5 mL iSecure Syringe IVPUSH PRN (19:30)
[2016-08-10 21:09] VITALS: BP 131/88; PULSE 75; RESP 16; O2SAT 98
[2016-08-10 22:38] VITALS: BP 124/84; PULSE 78; RESP 18; O2SAT 97
--- NOTE | 2016-08-11 09:04 | DRSVH ---
PROCEDURE: US ABDOMEN INDICATIONS: 36 year-old woman with upper abdominal pain. TECHNIQUE: Real-time scanning was performed of the abdominal and retroperitoneal organs, with image documentatio n. COMPARISON: None. FINDINGS: Liver length: 15.11 cm Gallbladder Wall Thickness: 2.10 mm CHD: 1.50 mm CBD: 2.90 mm Spleen length: 9.84 cm Right kidney length: 10.70 cm Left kidney length: 12.11 cm Aorta(Proximal): 2.10 cm Aorta(Mid): 1.50 cm Aorta(Distal): 1.24 cm RCIA: 1.12 cm LCIA: 1.04 cm Liver: Liver is normal in size and homogeneous in echotexture. Gallbladder: Normal gallbladder. Biliary ducts: Intrahepatic bile ducts are non-dilated. Extrahepatic bile duct caliber is normal. Normal is 6-7 mm or less in diameter, or 10 mm or less post-cholecystectomy. Pancreas: Visualized portions of the pancreas are sonographically normal. Spleen: Spleen is normal in size and homogeneous in echotexture. Kidneys: Kidneys are normal in size and echotexture. No hydronephrosis or nephrolithiasis. Mild ri ght renal pyelectasis. No solid masses. Multiple nonobstructing left renal calculi. Aorta: Visualized aorta is normal in caliber at less than 3 cm. Iliacs: Proximal common iliac arteries are normal in caliber at less than 2.5 cm. IVC: Intrahepatic inferior vena cava is patent. Miscellaneous: No free abdominal fluid. IMPRESSION: 1. Mild right renal pyelectasis; no obstructive renal stone identified. 2. Otherwise normal abdominal ultrasound. Dictated by: Mahad Tejeda Chelo Interpreted: Andrei Paul MD on 08/11/2016 at 9:01 Transcribed by: [email or web address] on 08/11/2016 at 9:03 Approved by: Andrei Paul M.D. on 08/11/2016 at 9:43
== END 2016-08-10 22:38 | disposition home or self-care (01) ==
LOC: SED 17:39
DX: O99.89 Other specified diseases and conditions complicating pregnancy, childbirth and the puerperium (principal); R10.13 Epigastric pain; O10.43 Pre-existing secondary hypertension complicating the puerperium; I15.9 Secondary hypertension, unspecified; R51 Headache; R11.0 Nausea; K59.00 Constipation, unspecified
CPT/HCPCS: 36415; 76700; 80053; 81000; 83690; 85025; 87040; 93005; 96361; 96374; 96375; 99285; J1100; J1170; J2765; J7030

== ENCOUNTER 2016-09-09 08:35 | Day surgery (SDC) | payer MEDICAID ==
[~2016-09-09] VITALS: Ht 157.5 cm; Wt 65.2 kg
[2016-09-09] VITALS (10 sets, daily range): BP systolic 113–135; BP diastolic 73–86; PULSE 62–72; RESP 11–17; O2SAT 94–99
[~2016-09-09 08:35] MED LIST changes: -NOMED
[2016-09-09] MEDS ORDERED: fentaNYL-PF 50 mCg/mL 2 mL Inj ONE (08:36)
[2016-09-09] MEDS ORDERED: Lidocaine PF 1% 30 mL Inj ONE (08:36)
[2016-09-09] MEDS ORDERED: Ondansetron 2 mg/mL 2 mL Inj ONE (08:36)
[2016-09-09] MEDS ORDERED: Neostigmine 1 mg/mL 5 mL Inj ONE (08:36)
[2016-09-09] MEDS ORDERED: Glycopyrrolate 0.2 mg/mL 5 mL Inj ONE (08:36)
[2016-09-09] MEDS ORDERED: Rocuronium 10 mg/mL 5 mL Inj ONE (08:36)
[2016-09-09] MEDS ORDERED: Dexamethasone 4 mg/mL Inj ONE (08:36)
[2016-09-09] MEDS ORDERED: Propofol 10,000 mCg/mL 20 mL Inj ONE (08:36)
[2016-09-09] MEDS: Lactated Ringer's 1,000 ML IV SCH ×2 (08:56→09:54)
[2016-09-09] MEDS ORDERED: POLY17PO6 PO (08:59)
--- NOTE | 2016-09-09 09:44 | PCM.HPANE ---
Patient Data Date of Service: Sep 09, 2016 Surgeon Admitting Provider: Attending Provider:Kenny Schmitz MD Primary Care Physician:Sabino Wilder MD Other Provider:Juan Dinh Anesthesia Reason for Visit Family Planning, Pelvic Pain Ht/WT & BMI Height (Feet): 5 Height (Inches): 5 Weight (Kilograms): 65.59 Body Mass Index 24.00 Allergies Coded Allergies: No Known Allergies (Unverified Allergy, Unknown, 08/10/16) Past Anesthesia History Anesthesia History: Denies:: Anesthesia Reactions Diabetes History Hx Diabetes?: No MRSA MRSA: No Medications Hypertension Medication: No Home Meds Incl Beta Fanny: Yes Date Beta Fanny Taken: Sep 09, 2016 Time Beta Fanny Taken: 0700 Active Scripts Ascorbate Calcium (Vitamin C)500 Mg [id number] Mg PO DAILY #30 TABLET Ref 3 Take with Iron Prov:Dione Soliz DO 07/17/16 Ferrous Sulfate 325 Mg [id number] Mg PO DAILY #30 TABLET Ref 3 Take with Vitamin C Prov:Dione Soliz 07/17/16 Labetalol 300 Mg [id number] Mg PO TID #90 TABLET Ref 1 Prov:Dione Soliz DO 07/17/16 Reported Medications Polyethylene Glycol 3350 (Miralax)17 Gm Powd.pack17 Gm PO PRN 09/09/16 Discontinued Reported Medications No Historical Medication Ea 07/07/13 Discontinued Scripts Ibuprofen 800 Mg [id number] Mg PO Q6H PRN For Pain #90 TABLET Prov:Dione Soliz DO 07/17/16 oxyCODONE-Acetaminophen 5-325 mg 1 Each Tablet1-2 Tab PO Q4H PRN For Pain #30 TABLET Prov:Dione Soliz DO 07/17/16 Docusate Sodium (Colace)100 Mg [id number] Mg PO BID PRN For Constipation #60 CAPSULE Prov:Dione Soliz DO 07/17/16 History History of ENT Problems?: No HEENT History: Denies:: Hearing Problem Hx of Heart Problems?: No Cardiovascular History: Denies:: Congestive Heart Failure Hypertension Hx of Respiratory Problem?: No Respiratory History: Denies:: Asthma COPD Emphysema Oxygen Administration Pneumonia Tuberculosis Use of C-PAP Machine Hx Neurologic Problems?: Yes Neurological History: Positive for:: Headaches (since 2013) Denies:: CVA Multiple Sclerosis Parkinson's Disease Seizures Hx of GI Problems?: Yes Gastrointestinal History: Positive for:: Gastroesphageal Reflux Denies:: Gall Bladder Disease Gastrointestinal Bleeding Heartburn Hepatitis Hiatal Hernia Liver Disease Hx of Problems?: No Female Hx: Denies:: Currently (tubal current admission plan) Problems with Breasts? Skin History: Denies:: History Skin Disorders? Pressure Ulcers Hx Musculoskeletal Problems?: Yes Musculoskeletal History: Positive for:: Osteoarthritis Denies:: Fibromyalgia Joint Replacement Musculoskeletal Trauma Myasthenia Gravis Hx of Psycho/Social Problems?: No Psycho Social History: Denies:: Anxiety Hx Depression Hx Surgeries?: Yes () Hx Any Other Health Problems?: Yes Other History: Denies:: Cancer Thyroid Disease History Blood Transfusions: Denies:: Blood Transfusions Hx Diabetes: No Hx Alcohol Use: NoHx Substance Use: No Smoking Status: Never Smoker Stop/Bang S-Snoring: Do You Snore Loudly: No T-Tired: feel tired, fatigued: Yes O-Obsered: Observed not breath: No P-Blood Pressure: treated: No B- Body Mass Index > 35 kg/m2: No A- Age over 50: No N- Neck Large Circumference: No G- Gender Male: No TRIP Total Score: 1 TRIP Risk Assessment: Low Risk, <3 Yes Risk Assessment Category Category 1A: Patient has history of documented sleep apnea, and HAS NOT received any narcotic, sedative or anesthesia administration during this stay. Category 1B: Patient has history of documented sleep apnea, and HAS received any narcotic , sedative or anesthesia administration during this stay Category 2: Patient has SUSPECTED Obstructive Sleep Apnea, and HAS received any narcotic , sedative or anesthesia administration during this stay. Category 3: Patient has SUSPECTED Obstructive Sleep Apnea and HAS NOT received narcotic, sedative or anesthesia administration during this stay. Category 4: Outpatient in Procedural Areas with known sleep apnea or who screen positive for High Risk via the STOP/BANG questionnaire. Exam Exam Vital Signs Vital Signs Date Time Temp Pulse Resp B/P Pulse Ox O2 Delivery O2 Flow Rate FiO2 09/09/16 09:14 68 16 115/73 98 Room Air General Appearance: Alert, Oriented X3, Cooperative, No Acute Distress HEENT/AIRWAY: MP 2 Lungs: Normal Air Movement Heart: Exam Unremarkable Meds/Labs/Diagnostics Admission Meds Current Medications Lactated Ringer's (Lr) 1,000 ml @ 10 mls/hr Q24H IV Last administered on t 08:56; Start 09/09/16 at 05:00; Stop 09/13/16 at 08:59 Plan Impression Patient chart reviewed, patient interviewed and anesthestic plan with risks, benefits, and alternatives discussed, and informed consent obtained. NPO Status: 09/08/16 ASA Physical Status: ASA2 Mod Systemic Disease Anesthetic Plan: GA Bene/Risks/Altern/Consents: Yes HP Complete Prior to Induction: Yes Maximino Toledo MD Sep 09, 2016 09:16
[2016-09-09] MEDS ORDERED: Lactated Ringer's 500 ML IV PRN (10:12)
[2016-09-09] MEDS ORDERED: Lactated Ringer's 1,000 ML IV SCH (10:12)
[2016-09-09] MEDS ORDERED: MetoCLOpramide 5 mg/mL 2 mL Inj IVPUSH PRN (10:15)
[2016-09-09] MEDS ORDERED: Dexamethasone 4 mg/mL Inj IVPUSH PRN (10:15)
[2016-09-09] MEDS ORDERED: HYDROmorphone 1 mg/mL Inj IVPUSH PRN (10:15)
[2016-09-09] MEDS ORDERED: fentaNYL-PF 50 mCg/mL 2 mL Inj IVPUSH PRN (10:15)
[2016-09-09] MEDS ORDERED: Phenylephrine 10,000 mCg/mL Inj IVPUSH PRN (10:15)
[2016-09-09] MEDS ORDERED: EPHEDrine Sulfate 50 mg/mL Inj IVPUSH PRN (10:15)
[2016-09-09] MEDS ORDERED: Labetalol 5 mg/mL 4 mL Inj IV PRN (10:15)
[2016-09-09] MEDS ORDERED: Ondansetron 2 mg/mL 2 mL Inj IVPUSH PRN ×2 (10:15→11:00)
[2016-09-09] MEDS ORDERED: hydrALAZINE 20 mg/mL Inj IVPUSH PRN (10:15)
[2016-09-09] MEDS ORDERED: Atropine 0.4 mg/mL Inj IVPUSH PRN (10:15)
[2016-09-09] MEDS ORDERED: Bupivacaine-MPF 0.5% W/EPI 30 mL Inj INFILTRATE ONE (10:24)
[2016-09-09] MEDS ORDERED: oxyCODONE-Acetamin 5-325 mg Tablet PO PRN (11:00)
[2016-09-09] MEDS ORDERED: diphenhydrAMINE 25 mg Capsule PO PRN (11:00)
--- NOTE | 2016-09-09 11:03 | PCM.DIMED ---
Discharge Instructions Date of Service Sep 09, 2016 Dates of Hospitalization Diet No restrictions Activity No restrictions Call your provider Fever or Chills, Shortness of breath, Bleeding, Chest pain, Vomitting, Excessive diarrhea Patient Instructions Follow-up with PCP in: 2 weeks Kenny Schmitz MD Sep 09, 2016 11:03
--- NOTE | 2016-09-09 11:04 | PCM.ANEP1 ---
Post Anesthesia Phase 1 PACU Phase 1 Assessment Date of Service: Sep 09, 2016 Vital Signs Vital Signs Date Time Temp Pulse Resp B/P Pulse Ox O2 Delivery O2 Flow Rate FiO2 09/09/16 11:00 36.3 62 11 125/82 99 Simple Mask 8 09/09/16 09:14 68 16 115/73 98 Room Air Anesthetic Administered: GA Level of Alertness: Drowsy, not talking Pain: No Nausea or Vomiting: No Airway Device: Oralpharangeal Airway Oxygen Delivery: Simple Mask Lungs: Normal Air Movement Maximino Toledo MD Sep 09, 2016 11:04
--- NOTE | 2016-09-09 11:29 | OP ---
[address] [address] OPERATIVE REPORT PATIENT: ABBY HOFFMANN : 1980 MR#: [id number] ADMIT: 09/09/2016 JOB ID: [id number] DATE OF SURGERY: 09/09/2016 PROCEDURE: Laparoscopic bilateral tubal ligation. PREOPERATIVE DIAGNOSIS(ES): Sterilization. POSTOPERATIVE DIAGNOSIS(ES): Sterilization. SURGEON: Kenny Schmitz MD. ANESTHESIA: General. ESTIMATED BLOOD LOSS: 10 mL. ESTIMATED FLUIDS: 700 mL of lactated Ringer. COMPLICATIONS: None. DESCRIPTION OF PROCEDURE: The patient was brought to the operating room, where she underwent general anesthesia without difficulty. The patient was placed in a dorsal lithotomy position using Addi stirrups. She was prepped and draped in usual surgical fashion. Two Zavala retractors were placed in the vagina. The cervix was identified and a Hulka uterine manipulator was placed. Attention was then directed to the patient's abdomen, where local anesthetic was used periumbilically. After that, a Veress needle was introduced through the umbilicus, and CO2 gas was insufflated. Appropriate pneumoperitoneum was achieved. A 5 mm vertical subumbilical incision was made with a scalpel, and a 5 mm trocar was placed through the incision. The pelvis was reviewed. The patient did not have any adhesions. Both adnexa, fallopian tubes and ovaries looked normal. A second 5 mm skin incision was made in the left lower quadrant superior and medial from the anterior superior iliac spine. Then, 5 mm trocar was placed through the incision. Using a LigaSure instrument with the uterus elevated with a Hulka manipulator, the patient's left fallopian tube was lifted up, coagulated 3 cm laterally from the cornua of the uterus in three different spots 1 cm from each other and transected. Images were obtained. The same was done on the patient's contralateral side. The abdomen was desufflated from the CO2 gas. All the instruments and trocars were removed. The abdominal skin incisions from trocars were closed with 4-0 Monocryl in subcuticular fashion. Dermabond glue was applied. Hemostatic dressings were applied. Hulka uterine manipulator was removed. There was no bleeding from the site of the cervix. The patient was repositioned back into the supine position. She tolerated the procedure well and was transferred to the recovery room in stable condition.
--- NOTE | 2016-09-09 11:45 | PCM.ANEP2 ---
Post Anesthesia Evaluation ASA/CMS Post Anesthesia Date of Service: Sep 09, 2016 VS in Patient's Normal Range?: Yes Resp Stable; Airway Patent?: Yes CV Function & Hydration Stable: Yes Mental Status Recovered?: Yes Pain control Satisfactory?: Yes N/V Control Satisfactory?: Yes Maximino Toledo MD Sep 09, 2016 11:45
== END 2016-09-09 23:59 | disposition home or self-care (01) ==
LOC: SAS 08:35
PROVIDERS: ATTEND Legal Medicine
DX: Z30.2 Encounter for sterilization (principal); R10.2 Pelvic and perineal pain; R51 Headache; K21.9 Gastro-esophageal reflux disease without esophagitis; M19.90 Unspecified osteoarthritis, unspecified site; Z79.899 Other long term (current) drug therapy
CPT/HCPCS: 58670; J1100; J2250; J2405; J2710; J3010; J7120